=== PATIENT | male | born 1980 | race Asian ===

== ENCOUNTER 2019-07-11 19:33 | Emergency (ER) | payer OTHER ==
[2019-07-11] MEDS ORDERED: Tetan/Diph/Pertus SYR(Tdap)* 0.5 ML SYR(BOOSTRIX) use SYR contains LATEX IM ONE (20:41)
[2019-07-11] MEDS ORDERED: ceFAZolin 500 MG VIAL(*) 500 MG VIAL IM ONE (20:54)
[2019-07-11] MEDS ORDERED: Ketorolac INJ* 30 MG/ML 1 ML VIAL IM ONE (20:58)
[2019-07-11] MEDS ORDERED: oxyCODONE TAB* 5 MG TAB PO ONE (20:58)
[2019-07-11] MEDS ORDERED: Lidocaine 2% 10 ML* VIAL INJ ONE (22:07)
[2019-07-11] MEDS ORDERED: Lidocaine 2% JELLY* 10 ML JELLY TOPICAL ONE (22:16)
[2019-07-11] MEDS ORDERED: Lidocaine 2% JELLY* 6 ML JELLY TOPICAL ONE ×2 (22:21→22:30)
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
[2019-07-11] MEDS ORDERED: Lidocaine 2% PF * 5 ML VIAL INJ ONE (23:00)
[2019-07-11 23:02] VITALS: BP 138/87
== END 2019-07-11 23:01 | disposition home or self-care (01) ==
LOC: ED 19:33 → MERGE 19:33 → ED 23:01
DX: S61.441A Puncture wound with foreign body of right hand, initial encounter (principal); W26.8XXA Contact with other sharp object(s), not elsewhere classified, initial encounter; Y92.9 Unspecified place or not applicable; Z23 Encounter for immunization; F17.200 Nicotine dependence, unspecified, uncomplicated
CPT/HCPCS: 90471; 90715; 96372; 99282; A9270-GY; J0690; J1885